=== PATIENT | female | born 2000 ===

== ENCOUNTER 2022-04-20 09:51 | Outpatient (REF) | payer OTHER, SELFPAY ==
--- NOTE | 2022-04-20 11:59 | MHC.AU.HFU ---
Hearing Instrument Follow-Up- Binaural Date of Visit: 04/20/22 Follow-Up Summary: Patient arrived for ear impressions. 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 She will be taking the impressions home and ordering the monitors herself through her program. Two sets of impressions were done, one with [employer] pink silicone material (as recommended by her program's paperwork) and one with [place] blue material. Recommendations: Patient will contact us if the company has any problems with the impressions. Diagnosis Code(s): Primary Diagnosis: Z01.12 Encounter for hearing conservation and treatment Signature: Provider: Ailyn Sood, CCC-A
== END 2022-04-20 09:52 | disposition home or self-care (01) ==
LOC: HO.HAP 09:51
PROVIDERS: PCP Nurse Practitioner Pediatrics; Visit Provider Nurse Practitioner Pediatrics
DX: Z46.1 Encounter for fitting and adjustment of hearing aid (principal)
CPT/HCPCS: V5275